=== PATIENT | female | born 1965 | race Caucasian/White ===

== ENCOUNTER 2017-07-26 05:58 | Emergency (ER) | payer OTHER ==
[~2017-07-26] VITALS: Ht 172.7 cm; Wt 65.9 kg
[~2017-07-26 05:58] MED LIST: NOCURR
[2017-07-26 07:04] LABS: INFLUENZA TYPE A NEGATIVE FOR TYPE A (NEGATIVE); INFLUENZA TYPE B NEGATIVE FOR TYPE B (NEGATIVE)
[2017-07-26] MEDS ORDERED: IPRATROPIUM BROMIDE 0.5 MG/2.5 ML NEB SOLUTION NEB ONE (09:00)
[2017-07-26] MEDS ORDERED: ALBUTEROL SULFATE 2.5 MG/0.5 ML NEB SOLUTION NEB ONE (09:00)
[2017-07-26 09:58] LABS: BASOPHILS % (AUTO) 0.1 % (0.0-2.0); EOSINOPHILS # (AUTO) 0.02 K/uL (0.00-0.70); EOSINOPHILS % (AUTO) 0.61 % (1.0-6.0); HEMATOCRIT 38.1 % (36-46); HEMOGLOBIN 13.4 g/dL (12.0-16.0); LYMPHOCYTES # (AUTO) 1.3 K/uL (1.0-4.8); LYMPHOCYTES % (AUTO) 32.1 % (22.0-44.0); MEAN CORPUSCULAR HEMOGLOBIN 31.9 pg (26.0-34.0); MEAN CORPUSCULAR HGB CONC 35.2 G/dL (31.0-37.0); MEAN CORPUSCULAR VOLUME 91 fL (80-100); MONOCYTES # (AUTO) 0.6 K/uL (0.1-1.0); MONOCYTES % (AUTO) 15.1 % (2.0-9.0); PLATELET COUNT (AUTO) 109 K/uL (150-450); RED BLOOD CELL COUNT(AUTO) 4.19 MIL/uL (4.00-5.20)
[2017-07-26 10:10] LABS: ANION GAP 5 mmol/L (8-16); CALCIUM, TOTAL 8.5 mg/dL (8.8-10.5); CARBON DIOXIDE 33 mmol/L (22-29); CHLORIDE 103 mmol/L (98-107); CREATININE 0.61 mg/dL (0.60-1.30); GLOMERULAR FILTR. RATE CALC > 60 mL/min (>60); GLUCOSE,RANDOM 94 mg/dL (70-110); POTASSIUM 4.3 mmol/L (3.5-5.1); SODIUM SERUM 141 mmol/L (136-145); UREA NITROGEN, BLOOD 8 mg/dL (7-18)
[2017-07-26 10:15] LABS: ALANINE AMINOTRANSFERASE 51 U/L (12-78); ALBUMIN 3.3 g/dL (3.4-5.0); ALKALINE PHOSPHATASE 67 U/L (46-116); ASPARTATE AMINOTRANSFERASE 42 U/L (15-37); BILIRUBIN,TOTAL 1.1 mg/dL (0.1-1.0); TOTAL PROTEIN, SERUM 6.9 g/dL (6.4-8.2)
[2017-07-26] MEDS ORDERED: BENZONATATE 100 MG CAPSULE PO ONE (10:30)
[2017-07-26 11:11] VITALS: BP 110/77
== END 2017-07-26 11:50 | disposition home or self-care (01) ==
LOC: EMS 05:59
DX: J06.9 Acute upper respiratory infection, unspecified (principal)
CPT/HCPCS: 36415; 71046; 80053; 85025; 87804; 94640; 99285; J7613

== ENCOUNTER 2017-08-06 12:30 | Emergency (ER) | payer OTHER ==
[~2017-08-06] VITALS: Ht 157.5 cm; Wt 52.3 kg
[2017-08-06] MEDS ORDERED: IPRATROPIUM BROMIDE 0.5 MG/2.5 ML NEB SOLUTION NEB ONE (13:15)
[2017-08-06] MEDS ORDERED: ACETAMINOPHEN/CODEINE 300-30 MG TABLET PO ONE (13:15)
[2017-08-06] MEDS ORDERED: ALBUTEROL SULFATE 5 MG/ML 20 ML NEB SOLN [BULK] NEB ONE (13:15)
[2017-08-06 14:18] VITALS: BP 133/82
[2017-08-07] MEDS ORDERED: ALBU8HFA4 IH (14:49)
[2017-08-07] MEDS ORDERED: AZIT250T9 PO (14:49)
[2017-08-07] MEDS ORDERED: GUAI10SY3 PO (14:49)
== END 2017-08-06 14:28 | disposition home or self-care (01) ==
LOC: EMS 12:32
DX: J06.9 Acute upper respiratory infection, unspecified (principal); J40 Bronchitis, not specified as acute or chronic
CPT/HCPCS: 71046; 94640; 99284; J7613

== ENCOUNTER 2017-08-07 14:45 | Emergency (ER) | payer OTHER ==
[~2017-08-07] VITALS: Ht 162.6 cm; Wt 59.1 kg
[2017-08-07] MEDS ORDERED: GUAI10SY3 PO (14:49)
[2017-08-07] MEDS ORDERED: AZIT250T9 PO (14:49)
[2017-08-07] MEDS ORDERED: ALBU8HFA4 IH (14:49)
[2017-08-07] MEDS ORDERED: ONDANSETRON HCL 4 MG/2 ML VIAL IM ONE (17:35)
[2017-08-07 17:45] VITALS: BP 129/74
== END 2017-08-07 18:26 | disposition home or self-care (01) ==
LOC: EMS 14:48
DX: R11.2 Nausea with vomiting, unspecified (principal); R42 Dizziness and giddiness; T40.2X5A Adverse effect of other opioids, initial encounter; Y92.89 Other specified places as the place of occurrence of the external cause
CPT/HCPCS: 96372; 99283; J2405